=== PATIENT | female | born 1985 ===

== ENCOUNTER 2017-03-25 09:29 | Emergency (ER) | payer SELFPAY ==
[2017-03-25 09:46] VITALS: BP 128/71; PULSE 87; RESP 18; TEMP 97; O2SAT 99
[2017-03-25] MEDS ORDERED: Lidocaine 1% Inj (20ml) IJ ONE (10:21)
--- NOTE | 2017-03-25 10:21 | ED PDOC ---
Lower Extremity Pain/Injury Time Seen by Provider: 03/25/17 09:59 Chief Complaint (Nursing): Lower Extremity Problem/Injury Chief Complaint (Provider): ingrown toenail History Per: Patient History/Exam Limitations: no limitations Onset/Duration Of Symptoms: Hrs Current Symptoms Are (Timing): Still Present Severity: Moderate Additional Complaint(s): 31 y/o F with no significant PMhx presents c/o ingrown toenail for years but this time she has developed severe pain in the L/big toe after she tried to cut her nails few days ago. Denies fever, paresthesias, vomiting, nausea, trauma. - Risk Factors DVT Risk Factors: Pos: None Past Medical History Reviewed: Vital Signs Vital Signs: Last Vital Signs Temp 97 F L 03/25/17 09:44 Pulse 87 03/25/17 09:44 Resp 18 03/25/17 09:44 BP 128/71 03/25/17 09:44 Pulse Ox 99 03/25/17 09:44 - Medical History PMH: No Chronic Diseases - Surgical History Surgical History: - Family History Family History: States: No Known Family Hx - Social History Current smoker - smoking cessation education provided: No - Home Medications Home Medications: Ambulatory Orders Medication Instructions Recorded Cephalexin [Keflex] 500 mg PO Q12H 3 Days #5 capsule 03/25/17 - Allergies Allergies/Adverse Reactions: Allergies Allergy/AdvReac Type Severity Reaction Status Date / Time No Known Allergies Allergy Verified 03/25/17 09:44 Review of Systems ROS Statement: Except As Marked, All Systems Reviewed And Found Negative Skin: Positive for: Other (Ingrown toenail, pain) Physical Exam - Reviewed Vital Signs Reviewed: Yes - Physical Exam Appears: Positive for: Well, Non-toxic Eye Exam: Positive for: Normal appearance Cardiovascular/Chest: Positive for: Regular Rate, Rhythm Respiratory: Positive for: Normal Breath Sounds. Negative for: Wheezing, Respiratory Distress Pulses-Post. Tibialis (L): 2+ Pulses-Post. Tibialis (R): 2+ Extremity: Positive for: Tenderness (tip L/1st toe), Other (Ingrown toenails B/ L 1st toe) Neurologic/Psych: Positive for: Alert, Oriented. Negative for: Motor/Sensory Deficits - ECG O2 Sat by Pulse Oximetry: 99 - Progress ED Course And Treament: Evaluated by podiatry. Partial nail removed from L/1st big toe by Podiatry resident. Keflex 500mg once given for prophylaxis. Medical Decision Making Medical Decision Making: Ingrown toenail + Paronychia Podiatry consult Procedures - Time-Out Type of Procedure: partial nail removal Site of Procedure: L/1st toe (medial) Physician Name: Dr Parr(Podiatry resident) Disposition - Clinical Impression Clinical Impression: Paronychia, Ingrown nail - Patient ED Disposition Is Patient to be Admitted: No - Disposition Referrals: Podiatry Clinic [Outside] Disposition: Routine/Home Disposition Time: 10:46 Condition: STABLE Additional Instructions: F/U en la clinica de Podiatria en alfredo semana [place] el vendaje cada slime lori le fue instruido Regrese a Emergencia si presenta sangramiento, intenso dolor en el pie o fiebre Prescriptions: Cephalexin [Keflex] 500 mg PO Q12H 3 Days #5 capsule Instructions: Paronychia (ED) Forms: [facility] (Pu[place]ican), [facility] ED School/Work Excuse Print Language: JAPANESE
[2017-03-25] MEDS ORDERED: Povidone Iodine Oint 10% Foilpak UD ONE (10:23)
--- NOTE | 2017-03-25 10:47 | CP.PCM.CON ---
History of Present Illness - History of Present Illness History of Present Illness: 31 y/o female with no significant PMHx seen and evaluated at bedside complaining of left hallux pain. Patient states that she has had pain in the toe for a very long time and has recently started increasing to the point where she can not tolerate. Patient describes her pain as 9/10 on VAS. Patient denies of any other treatments for the pain prior to coming here. Patient denies of any recent F/N/V/C/SOB/CP today. Patient denies of any other pedal complains now. PMHx: Denies PSHx: Denies Allergies: N.K.D.A SHx: denies smoking, EtOH use or any illicit drug usage Review of Systems - Constitutional Constitutional: As Per HPI Past Patient History - Past Social History Smoking Status: Never Smoked - PSYCHIATRIC Hx Substance Use: No - SURGICAL HISTORY Hx Section: Yes Meds Allergies/Adverse Reactions: Allergies Allergy/AdvReac Type Severity Reaction Status Date / Time No Known Allergies Allergy Verified 03/25/17 09:44 Physical Exam - Constitutional Appears: Well, Non-toxic, No Acute Distress - Extremities Exam Extremities exam: Negative for: calf tenderness Additional comments: Bilateral LE exam VASC: DP/PT pulses are palpable 2/4 b/l, Cap refill time: < 3 sec to all digits , Temp gradient: warm to cool from proximal to distal, nonpitting edema noted on the lateral aspect of the nail fold on the left hallux with surrounding erythema DERM: no open lesions, no clinical suspicion of active infection NEURO: Protective sensation grossly intact ORTHO: Pain on palpation of the lateral nail fold as well as the distal aspect of the left hallux - Neurological Exam Neurological exam: Alert, Oriented x3 - Psychiatric Exam Psychiatric exam: Normal Affect, Normal Mood Results - Vital Signs Recent Vital Signs: Last Vital Signs Temp 97 F L 03/25/17 09:44 Pulse 87 03/25/17 09:44 Resp 18 03/25/17 09:44 BP 128/71 03/25/17 09:44 Pulse Ox 99 03/25/17 10:42 Assessment & Plan - Assessment and Plan (Free Text) Assessment: 31 y/o female with no significant PMHx seen and evaluated at bedside for pain secondary to ingrowing hallux nail Plan: Patient seen and evaluated at bedside in ED Patient discussed in details with attending Dr. Brii Davis reviewed- afebrile Patient educated the reason for her pain and educated will need to remove the lateral border of the nail - patient demonstrated verbal understanding and agreed with the plan 8 cc of 1% lidocaine plain injected in local (H-block) fashion Using sterile technique, partial nail avulsion of the lateral border of the left hallucal nail performed Patient tolerated the procedure well Bactracin applied to the site and wound dressed with DSD Patient educated of proper dressing care at home Patient given Keflex 500 mg Patient educated to take pain medication if needed and to wear open toe shoe Patient given a post-op shoe Patient demonstrated verbal understanding of the plain Patient will follow up in podiatry clinic in 1 week Thank you for the podiatry consult and allowing to take part in patient care - Date & Time Date: 03/25/17 Time: 10:56
== END 2017-03-25 11:10 | disposition home or self-care (01) ==
LOC: H.ER 09:29
DX: L03.032 Cellulitis of left toe (principal); L60.0 Ingrowing nail